=== PATIENT | female | born 1960 | race Caucasian/White ===

== ENCOUNTER 2023-07-28 14:11 | Inpatient (IN) ==
[2023-07-28 16:06] LABS: Basophils # (Auto) 0.01 K/mcL (0.00-0.30); Basophils % (Auto) 0.1 % (0.0-2.0); Eosinophils # (Auto) 0 K/mcL (0.00-0.70); Eosinophils % (Auto) 0 % (0.0-7.0); Hematocrit 31.6 % (34.1-44.9); Hemoglobin 11.4 g/dL (11.2-15.7); Lymphocytes # (Auto) 1.12 K/mcL (1.50-4.80); Lymphocytes % (Auto) 5.9 % (15.5-49.0); Mean Cell Volume 89.5 fL (80.0-100.0); Mean Corpuscular HGB Conc 36.1 g/dL (31.0-36.0); Mean Platelet Volume 8.6 fL (8.8-12.5); Monocytes # (Auto) 1.19 K/mcL (0.10-0.90); Monocytes % (Auto) 6.2 % (1.0-12.0); Neutrophils % (Auto) 86.8 % (38.0-78.0); Platelet Count 288 K/mcL (140-440); RBC 3.53 M/mcL (3.59-5.38); WBC 19.1 K/mcL (4.5-11.0)
[2023-07-28 16:07] LABS: ALT/SGPT 34 U/L (<40); AST/SGOT 46 U/L (<32); Albumin 3.2 gm/dL (3.2-5.2); Alkaline Phosphatase 71 U/L (39-117); Bilirubin,Total 0.6 mg/dL (0.1-1.0); Blood Urea Nitrogen 34 mg/dL (8-23); Calcium 8.3 mg/dL (8.6-10.4); Carbon Dioxide 16 mmol/L (22-30); Chloride 83 mmol/L (96-108); Globulin 3.2 gm/dL (2.2-3.7); Glomerular Filtration Rate 30; Glucose 130 mg/dL (70-105)
[2023-07-28] MEDS: AZITHROMYCIN 250 MG TABLET PO ONE (16:45)
[2023-07-28] MEDS: cefTRIAXone 1 GM VIAL IV ONE (17:30)
[2023-07-28] MEDS: 0.9 % SODIUM CHLORIDE 1,000 ML IV ONE (17:52)
[2023-07-28 18:04] LABS: Thyroid Stimulating Hormone 1.3 uIU/mL (0.27-5.01); Uric Acid 5.6 mg/dL (2.5-8.0)
[2023-07-28] MEDS: MAGNESIUM SULFATE 1 GM/100 ML BAG IV SCH (18:25)
[2023-07-28] MEDS: ACETAMINOPHEN 325 MG TABLET PO ONE (18:56)
[2023-07-28] MEDS: MAGNESIUM SULFATE 2 GM/50 ML BAG IV SCH (19:24)
[2023-07-28] MEDS: MAGNESIUM SULFATE 4 GM/100 ML BAG IV SCH (19:25)
[2023-07-28] MEDS: KETOROLAC 15 MG/ML VIAL IV ONE (20:10)
[2023-07-28] MEDS ORDERED: ONDANSETRON 4 MG/2 ML VIAL IV PRN (20:23)
[2023-07-28] MEDS: 0.9 % SODIUM CHLORIDE 1,000 ML IV SCH (21:01)
[2023-07-28] MEDS: IPRATROPIUM/ALBUTEROL 3 ML AMPUL.NEB NEB SCH (21:26)
[2023-07-28 21:34] LABS: Blood Urea Nitrogen 36 mg/dL (8-23); Carbon Dioxide 15 mmol/L (22-30); Chloride 87 mmol/L (96-108); Glomerular Filtration Rate 28; Glucose 139 mg/dL (70-105)
[2023-07-28 22:02] LABS: Appearance,Urine TURBID (Clear); Bilirubin,Urine Negative (Negative); Color,Urine AMBER; Culture Indicated,Urine No; Glucose,Urine (UA) Negative (Negative); Ketones,Urine 5 mg/dL (Negative); Leukocyte Esterase,Urine Negative /uL (Negative); Mucus,Urine FEW /hpf; Nitrate,Urine Negative (Negative); Protein,Urine 100 mg/dL (Negative); Specific Gravity,Urine 1.017 (1.000-1.035); Urine Blood 0.03 mg/dL (Negative); Urine Granular Cast 30 /lph (0-0); Urine RBC 3 /hpf (0-3); Urine Squamous Epithelial Cell 1 /hpf (0-4); Urine WBC 4 /hpf (0-4); Urobilinogen,Urine Negative
[2023-07-28] MEDS: PHOSPHORUS 250 MG TABLET PO ONE (22:07)
[2023-07-28] MEDS: HEPARIN 5,000 UNIT/ML VIAL SQ SCH (22:08)
[2023-07-28] MEDS: POTASSIUM CHLORIDE 20 MEQ TABLET PO PRN (22:42)
[2023-07-28] MEDS: POTASSIUM CHLORIDE 40 MEQ in DEXTROSE 5% IN WATER 500 ML IV PRN (22:43)
[2023-07-29] MEDS: POTASSIUM CHLORIDE 20 MEQ/10 ML VIAL IV ONE (00:27)
[2023-07-29 06:00] LABS: Basophils # (Auto) 0.01 K/mcL (0.00-0.30); Basophils % (Auto) 0 % (0.0-2.0); Eosinophils # (Auto) 0 K/mcL (0.00-0.70); Eosinophils % (Auto) 0 % (0.0-7.0); Hematocrit 30.2 % (34.1-44.9); Lymphocytes # (Auto) 0.47 K/mcL (1.50-4.80); Mean Cell Volume 90.1 fL (80.0-100.0); Mean Corpuscular HGB Conc 36.4 g/dL (31.0-36.0); Mean Platelet Volume 8.7 fL (8.8-12.5); Monocytes % (Auto) 2.1 % (1.0-12.0); Neutrophils % (Auto) 95.6 % (38.0-78.0); Platelet Count 308 K/mcL (140-440); RBC 3.35 M/mcL (3.59-5.38); Red Cell Distribution Width 12.3 % (11.5-14.5); WBC 23.4 K/mcL (4.5-11.0)
[2023-07-29 06:34] LABS: ALT/SGPT 30 U/L (<40); AST/SGOT 35 U/L (<32); Albumin 2.9 gm/dL (3.2-5.2); Alkaline Phosphatase 72 U/L (39-117); Bilirubin,Direct < 0.2 mg/dL (0-0.3); Bilirubin,Total 0.2 mg/dL (0.1-1.0); Blood Urea Nitrogen 38 mg/dL (8-23); Calcium 8.3 mg/dL (8.6-10.4); Carbon Dioxide 17 mmol/L (22-30); Chloride 87 mmol/L (96-108); Globulin 2.9 gm/dL (2.2-3.7); Glomerular Filtration Rate 30; Glucose 148 mg/dL (70-105); Lactate Dehydrogenase 239 U/L (135-225); Triglycerides 78 mg/dL (<150); Uric Acid 5.7 mg/dL (2.5-8.0)
[2023-07-29 08:06] LABS: Band Neutrophils % 32 % (0-10); Lymphocytes % 2 % (15-49); Monocytes % (Manual) 4 % (1-12); Platelet Estimate NORMAL (Normal); RBC Morphology NORMAL (Normal); Segmented Neutrophils % 62 % (38-78)
[2023-07-29] MEDS: ATENOLOL 50 MG TABLET PO SCH (08:24)
[2023-07-29] MEDS: SODIUM CHLORIDE 3 % 50 ML IV ONE ×2 (08:24→12:53)
[2023-07-29] MEDS: predniSONE 20 MG TABLET PO SCH (08:25)
[2023-07-29] MEDS: SODIUM BICARBONATE 650 MG TABLET PO SCH (08:25)
[2023-07-29] MEDS: PHOSPHORUS 250 MG TABLET PO SCH (08:25)
[2023-07-29] MEDS: ACETAMINOPHEN 325 MG TABLET PO PRN (08:25)
[2023-07-29] MEDS: cefTRIAXone 1 GM VIAL IV SCH (08:26)
[2023-07-29] MEDS ORDERED: LORazepam 2 MG/ML VIAL IV PRN (10:34)
[2023-07-29] MEDS: guaiFENesin/CODEINE 10 ML UDC PO PRN (10:58)
[2023-07-29] MEDS: MULTIVIT,THER IRON,CA,FA & MIN 1 TABLET PO SCH (10:58)
[2023-07-29] MEDS: FOLIC ACID 1 MG TABLET PO SCH (10:58)
[2023-07-29] MEDS: NICOTINE 14 MG PATCH TOPICAL SCH (10:58)
[2023-07-29] MEDS: AZITHROMYCIN 500 MG in DEXTROSE 5% IN WATER 250 ML IV SCH (10:58)
[2023-07-29 12:09] LABS: Blood Urea Nitrogen 36 mg/dL (8-23); Calcium 8.4 mg/dL (8.6-10.4); Carbon Dioxide 15 mmol/L (22-30); Chloride 89 mmol/L (96-108); Glomerular Filtration Rate 34; Glucose 172 mg/dL (70-105)
[2023-07-29] MEDS: 0.9 % SODIUM CHLORIDE 10 ML SYRINGE IV SCH (14:11)
[2023-07-29] MEDS: THIAMINE 100 MG in 0.9 % SODIUM CHLORIDE 50 ML IV SCH (14:17)
[2023-07-29] MEDS: POTASSIUM CHLORIDE 20 MEQ TABLET PO PRN (14:17)
[2023-07-29] MEDS: chlordiazePOXIDE 25 MG CAPSULE PO PRN (14:29)
[2023-07-29 16:54] LABS: Blood Urea Nitrogen 35 mg/dL (8-23); Carbon Dioxide 16 mmol/L (22-30); Chloride 91 mmol/L (96-108); Glomerular Filtration Rate 40; Glucose 249 mg/dL (70-105)
[2023-07-29] MEDS ORDERED: DEXTROSE 50% 50 ML VIAL IV PRN (17:50)
[2023-07-29] MEDS ORDERED: DEXTROSE 31 GM ORAL.SUSP PO PRN (17:50)
[2023-07-29] MEDS: 0.9 % SODIUM CHLORIDE 500 ML IV ONE (17:59)
[2023-07-29] MEDS: IPRATROPIUM/ALBUTEROL 3 ML AMPUL.NEB NEB PRN (18:00)
[2023-07-29] MEDS: SODIUM BICARBONATE VIAL 150 MEQ in WATER FOR INJECTION,STERILE 850 ML IV SCH (18:38)
[2023-07-29] MEDS: POTASSIUM CHLORIDE 20 MEQ TABLET PO ONE (18:39)
[2023-07-29] MEDS: MELATONIN 3 MG TABLET PO SCH (20:06)
[2023-07-29] MEDS: diphenhydrAMINE 25 MG CAPSULE PO PRN (20:06)
[2023-07-29] MEDS: Olopatadine 0.1 % drops OU SCH (20:07)
[2023-07-29] MEDS: MONTELUKAST 10 MG TABLET PO SCH (20:13)
[2023-07-29] MEDS: INSULIN LISPRO 1 UNIT/0.01 ML UNIT SQ SCH (20:14)
[2023-07-29] MEDS: LORazepam 2 MG/ML VIAL IV PRN (23:00)
[2023-07-30 06:20] LABS: Hematocrit 30.9 % (34.1-44.9); Mean Corpuscular HGB Conc 35.6 g/dL (31.0-36.0); Mean Platelet Volume 9.6 fL (8.8-12.5); Platelet Count 382 K/mcL (140-440); RBC 3.36 M/mcL (3.59-5.38); Red Cell Distribution Width 12.9 % (11.5-14.5); WBC 28.5 K/mcL (4.5-11.0)
[2023-07-30 06:28] LABS: Band Neutrophils % 22 % (0-10); Eosinophils % (Manual) 1 % (0-7); Lymphocytes % 3 % (15-49); Monocytes % (Manual) 2 % (1-12); Platelet Estimate NORMAL (Normal); RBC Morphology NORMAL (Normal); Reactive Lymphocytes 1 % (0-2); Segmented Neutrophils % 71 % (38-78)
[2023-07-30 06:47] LABS: ALT/SGPT 30 U/L (<40); AST/SGOT 30 U/L (<32); Albumin 2.9 gm/dL (3.2-5.2); Albumin/Globulin Ratio 0.9 (1.0-2.3); Alkaline Phosphatase 84 U/L (39-117); Bilirubin,Direct < 0.2 mg/dL (0-0.3); Bilirubin,Total 0.2 mg/dL (0.1-1.0); Blood Urea Nitrogen 33 mg/dL (8-23); Calcium 8.9 mg/dL (8.6-10.4); Carbon Dioxide 20 mmol/L (22-30); Chloride 93 mmol/L (96-108); Globulin 3.3 gm/dL (2.2-3.7); Glomerular Filtration Rate 54; Glucose 118 mg/dL (70-105); Lactate Dehydrogenase 297 U/L (135-225); Phosphorous 3.3 mg/dL (2.5-4.5); Triglycerides 144 mg/dL (<150); Uric Acid 5.9 mg/dL (2.5-8.0)
[2023-07-30] MEDS: OMEPRAZOLE 20 MG CAPSULE PO SCH (06:52)
[2023-07-30] MEDS ORDERED: NON FORMULARY MEDICATION 1 DOSE MISCELL BOTH EYES PRN (08:09)
[2023-07-30] MEDS: SODIUM CHLORIDE 1 GM TABLET PO SCH (08:35)
[2023-07-30] MEDS ORDERED: PNEUMOCOCCAL 23-VAL P-SAC VAC 0.5 ML SYRINGE IM ONE (10:00)
[2023-07-30] MEDS ORDERED: IOPAMIDOL 100 ML BOTTLE IV ONE (10:24)
[2023-07-30] MEDS: POLYETHYLENE GLYCOL 400 OU PRN (10:44)
[2023-07-30] MEDS: PROPYLENE GLYCOL OU PRN (10:44)
[2023-07-30] MEDS ORDERED: chlordiazePOXIDE 25 MG CAPSULE PO PRN (12:00)
[2023-07-30] MEDS: PNEUMOCOCCAL 23-VAL P-SAC VAC 0.5 ML SYRINGE IM ONE (15:14)
[2023-07-31 06:03] LABS: Hematocrit 33.4 % (34.1-44.9); Hemoglobin 11.4 g/dL (11.2-15.7); Mean Cell Volume 93.6 fL (80.0-100.0); Mean Corpuscular HGB Conc 34.1 g/dL (31.0-36.0); Platelet Count 453 K/mcL (140-440); RBC 3.57 M/mcL (3.59-5.38); Red Cell Distribution Width 13.5 % (11.5-14.5); WBC 25.2 K/mcL (4.5-11.0)
[2023-07-31 06:40] LABS: ALT/SGPT 27 U/L (<40); AST/SGOT 20 U/L (<32); Albumin 2.8 gm/dL (3.2-5.2); Albumin/Globulin Ratio 0.9 (1.0-2.3); Alkaline Phosphatase 77 U/L (39-117); Bilirubin,Direct < 0.2 mg/dL (0-0.3); Bilirubin,Total < 0.2 mg/dL (0.1-1.0); Blood Urea Nitrogen 29 mg/dL (8-23); Calcium 9.3 mg/dL (8.6-10.4); Carbon Dioxide 21 mmol/L (22-30); Chloride 94 mmol/L (96-108); Glomerular Filtration Rate 79; Glucose 120 mg/dL (70-105); Lactate Dehydrogenase 232 U/L (135-225); Phosphorous 3.7 mg/dL (2.5-4.5); Triglycerides 158 mg/dL (<150); Uric Acid 5.2 mg/dL (2.5-8.0)
[2023-07-31 06:44] LABS: Band Neutrophils % 5 % (0-10); Lymphocytes % 3 % (15-49); Monocytes % (Manual) 4 % (1-12); Reactive Lymphocytes 1 % (0-2); Segmented Neutrophils % 87 % (38-78)
[2023-07-31 06:52] LABS: Platelet Estimate INCREASED (Normal); RBC Morphology NORMAL (Normal)
[2023-07-31] MEDS: FUROSEMIDE 40 MG/4 ML VIAL IV ONE (08:59)
[2023-07-31] MEDS: ALBUMIN HUMAN 12.5 GM/50 ML VIAL IV ONE (08:59)
[2023-07-31] MEDS: NEOMYCIN AU SCH (14:30)
[2023-07-31] MEDS: POLYMYXIN AU SCH (14:30)
[2023-07-31] MEDS: [UNRECOGNIZED DRUG - OTHER] AU SCH (14:30)
[2023-08-01 06:01] LABS: Basophils # (Auto) 0.01 K/mcL (0.00-0.30); Basophils % (Auto) 0.1 % (0.0-2.0); Eosinophils # (Auto) 0.03 K/mcL (0.00-0.70); Eosinophils % (Auto) 0.2 % (0.0-7.0); Hematocrit 30.1 % (34.1-44.9); Hemoglobin 10.8 g/dL (11.2-15.7); Lymphocytes # (Auto) 2.36 K/mcL (1.50-4.80); Lymphocytes % (Auto) 14.4 % (15.5-49.0); Mean Cell Volume 94.1 fL (80.0-100.0); Mean Corpuscular HGB Conc 35.9 g/dL (31.0-36.0); Mean Platelet Volume 8.3 fL (8.8-12.5); Monocytes # (Auto) 0.65 K/mcL (0.10-0.90); Neutrophils % (Auto) 80.6 % (38.0-78.0); Platelet Count 491 K/mcL (140-440); Red Cell Distribution Width 13.4 % (11.5-14.5); WBC 16.4 K/mcL (4.5-11.0)
[2023-08-01 06:21] LABS: ALT/SGPT 24 U/L (<40); AST/SGOT 24 U/L (<32); Albumin 2.6 gm/dL (3.2-5.2); Alkaline Phosphatase 78 U/L (39-117); Bilirubin,Direct < 0.2 mg/dL (0-0.3); Bilirubin,Total 0.3 mg/dL (0.1-1.0); Blood Urea Nitrogen 31 mg/dL (8-23); Calcium 9.1 mg/dL (8.6-10.4); Carbon Dioxide 24 mmol/L (22-30); Chloride 98 mmol/L (96-108); Globulin 2.7 gm/dL (2.2-3.7); Glomerular Filtration Rate 79; Glucose 112 mg/dL (70-105); Lactate Dehydrogenase 305 U/L (135-225); Phosphorous 4.1 mg/dL (2.5-4.5); Triglycerides 146 mg/dL (<150)
[2023-08-01] MEDS: THIAMINE 100 MG TABLET PO SCH (08:02)
[2023-08-02] MEDS: hydrALAZINE 20 MG/ML VIAL IV PRN (00:54)
[2023-08-02 06:33] LABS: Basophils # (Auto) 0.01 K/mcL (0.00-0.30); Basophils % (Auto) 0.1 % (0.0-2.0); Eosinophils # (Auto) 0.12 K/mcL (0.00-0.70); Hematocrit 30.8 % (34.1-44.9); Hemoglobin 10.5 g/dL (11.2-15.7); Lymphocytes # (Auto) 2.52 K/mcL (1.50-4.80); Lymphocytes % (Auto) 20.8 % (15.5-49.0); Mean Cell Volume 94.8 fL (80.0-100.0); Mean Corpuscular HGB Conc 34.1 g/dL (31.0-36.0); Mean Platelet Volume 8.7 fL (8.8-12.5); Monocytes # (Auto) 0.64 K/mcL (0.10-0.90); Monocytes % (Auto) 5.3 % (1.0-12.0); Platelet Count 590 K/mcL (140-440); RBC 3.25 M/mcL (3.59-5.38); Red Cell Distribution Width 13.4 % (11.5-14.5); WBC 12.1 K/mcL (4.5-11.0)
[2023-08-02 07:25] LABS: ALT/SGPT 25 U/L (<40); AST/SGOT 25 U/L (<32); Albumin 2.8 gm/dL (3.2-5.2); Albumin/Globulin Ratio 1.2 (1.0-2.3); Alkaline Phosphatase 72 U/L (39-117); Bilirubin,Direct < 0.2 mg/dL (0-0.3); Bilirubin,Total 0.3 mg/dL (0.1-1.0); Blood Urea Nitrogen 27 mg/dL (8-23); Calcium 8.9 mg/dL (8.6-10.4); Carbon Dioxide 24 mmol/L (22-30); Chloride 101 mmol/L (96-108); Globulin 2.4 gm/dL (2.2-3.7); Glomerular Filtration Rate 97; Glucose 90 mg/dL (70-105); Lactate Dehydrogenase 186 U/L (135-225); Phosphorous 3.1 mg/dL (2.5-4.5); Triglycerides 175 mg/dL (<150); Uric Acid 3.6 mg/dL (2.5-8.0)
[2023-08-02] MEDS: MAGNESIUM SULFATE 2 GM/50 ML BAG IV PRN (07:48)
[2023-08-02] MEDS: AZITHROMYCIN 250 MG TABLET PO SCH (08:28)
[2023-08-02] MEDS: aMILoride 5 MG TABLET PO SCH (11:17)
[2023-08-02] MEDS ORDERED: FLUTICASONE PROPIONATE SPRAY.NAS NS PRN (12:12)
[2023-08-02] MEDS: MAGNESIUM SULFATE 4 GM/100 ML BAG IV ONE (12:52)
[2023-08-02] MEDS: MAGNESIUM OXIDE 400 MG TABLET PO SCH (14:27)
[2023-08-03 06:23] LABS: ALT/SGPT 28 U/L (<40); AST/SGOT 33 U/L (<32); Albumin 2.7 gm/dL (3.2-5.2); Albumin/Globulin Ratio 1.1 (1.0-2.3); Alkaline Phosphatase 72 U/L (39-117); Bilirubin,Total 0.2 mg/dL (0.1-1.0); Blood Urea Nitrogen 23 mg/dL (8-23); Calcium 8.9 mg/dL (8.6-10.4); Carbon Dioxide 24 mmol/L (22-30); Chloride 96 mmol/L (96-108); Globulin 2.5 gm/dL (2.2-3.7); Glomerular Filtration Rate 97; Glucose 94 mg/dL (70-105)
[2023-08-03 06:41] LABS: Basophils # (Auto) 0.01 K/mcL (0.00-0.30); Basophils % (Auto) 0.1 % (0.0-2.0); Eosinophils # (Auto) 0.13 K/mcL (0.00-0.70); Eosinophils % (Auto) 1.3 % (0.0-7.0); Hematocrit 30.8 % (34.1-44.9); Hemoglobin 10.4 g/dL (11.2-15.7); Lymphocytes # (Auto) 2.62 K/mcL (1.50-4.80); Lymphocytes % (Auto) 25.3 % (15.5-49.0); Mean Cell Volume 96.6 fL (80.0-100.0); Mean Corpuscular HGB Conc 33.8 g/dL (31.0-36.0); Mean Platelet Volume 9.1 fL (8.8-12.5); Monocytes # (Auto) 0.61 K/mcL (0.10-0.90); Monocytes % (Auto) 5.9 % (1.0-12.0); Neutrophils % (Auto) 66.1 % (38.0-78.0); Platelet Count 585 K/mcL (140-440); RBC 3.19 M/mcL (3.59-5.38); Red Cell Distribution Width 13.3 % (11.5-14.5); WBC 10.3 K/mcL (4.5-11.0)
[2023-08-03] MEDS: CETIRIZINE 10 MG TABLET PO SCH (08:06)
[2023-08-03] MEDS: VITAMIN D3 25 MCG TABLET PO SCH (08:07)
== END 2023-08-03 11:09 | disposition home or self-care (01) | DRG 871 ==
LOC: ED 14:11 → ICU 20:20
PROVIDERS: ADMIT Internal Medicine; ATTEND Internal Medicine

== ENCOUNTER 2023-08-14 16:56 | Inpatient (IN) ==
[2023-08-14] MEDS ORDERED: IOPAMIDOL 100 ML BOTTLE IV ONE ×2 (16:57)
[2023-08-14] MEDS: LACTATED RINGERS 1,000 ML IV ONE ×2 (17:25→19:19)
[2023-08-14] MEDS: ONDANSETRON 4 MG/2 ML VIAL IV ONE ×2 (17:28→21:07)
[2023-08-14 18:22] LABS: ALT/SGPT 18 U/L (<40); AST/SGOT 23 U/L (<32); Albumin 3.8 gm/dL (3.2-5.2); Alkaline Phosphatase 92 U/L (39-117); Bilirubin,Total 0.4 mg/dL (0.1-1.0); Blood Urea Nitrogen 18 mg/dL (8-23); Calcium 8.3 mg/dL (8.6-10.4); Carbon Dioxide 18 mmol/L (22-30); Chloride 92 mmol/L (96-108); Globulin 3.7 gm/dL (2.2-3.7); Glomerular Filtration Rate 92; Glucose 116 mg/dL (70-105)
[2023-08-14 18:23] LABS: Basophils # (Auto) 0.02 K/mcL (0.00-0.30); Basophils % (Auto) 0.3 % (0.0-2.0); Eosinophils % (Auto) 1.3 % (0.0-7.0); Hematocrit 32.6 % (34.1-44.9); Hemoglobin 11.2 g/dL (11.2-15.7); Lymphocytes # (Auto) 2.35 K/mcL (1.50-4.80); Lymphocytes % (Auto) 30.1 % (15.5-49.0); Mean Cell Volume 93.4 fL (80.0-100.0); Mean Corpuscular HGB Conc 34.4 g/dL (31.0-36.0); Mean Platelet Volume 8.8 fL (8.8-12.5); Monocytes # (Auto) 0.72 K/mcL (0.10-0.90); Monocytes % (Auto) 9.2 % (1.0-12.0); Platelet Count 422 K/mcL (140-440); RBC 3.49 M/mcL (3.59-5.38); Red Cell Distribution Width 12.6 % (11.5-14.5); WBC 7.8 K/mcL (4.5-11.0)
[2023-08-14] MEDS: MAGNESIUM SULFATE 2 GM/50 ML BAG IV ONE ×3 (18:52→23:40)
[2023-08-14] MEDS ORDERED: PROCHLORPERAZINE 10 MG/2 ML VIAL IV PRN (23:11)
[2023-08-14] MEDS ORDERED: ONDANSETRON 4 MG/2 ML VIAL IV PRN (23:11)
[2023-08-14] MEDS: LACTATED RINGERS 1,000 ML IV SCH (23:34)
[2023-08-14] MEDS: 0.9 % SODIUM CHLORIDE 10 ML SYRINGE IV SCH (23:38)
[2023-08-15 07:18] LABS: ALT/SGPT 17 U/L (<40); AST/SGOT 18 U/L (<32); Albumin 3.1 gm/dL (3.2-5.2); Albumin/Globulin Ratio 1.1 (1.0-2.3); Alkaline Phosphatase 76 U/L (39-117); Bilirubin,Direct < 0.2 mg/dL (0-0.3); Bilirubin,Total 0.4 mg/dL (0.1-1.0); Blood Urea Nitrogen 11 mg/dL (8-23); Carbon Dioxide 23 mmol/L (22-30); Chloride 95 mmol/L (96-108); Globulin 2.7 gm/dL (2.2-3.7); Glomerular Filtration Rate 103; Glucose 106 mg/dL (70-105); Lactate Dehydrogenase 149 U/L (135-225); Phosphorous 2.3 mg/dL (2.5-4.5); Triglycerides 94 mg/dL (<150); Uric Acid 2.2 mg/dL (2.5-8.0)
[2023-08-15] MEDS: ENOXAPARIN 40 MG/0.4 ML SYRINGE SQ SCH (08:14)
[2023-08-15] MEDS ORDERED: FLUTICASONE PROPIONATE SPRAY.NAS NS PRN (09:00)
[2023-08-15] MEDS ORDERED: CARBOXYMETHYLCELLULOSE SODIUM 1 EACH DROPER.GEL OP PRN (10:20)
[2023-08-15] MEDS: CETIRIZINE 10 MG TABLET PO SCH (11:18)
[2023-08-15] MEDS: ATENOLOL 50 MG TABLET PO SCH (11:18)
[2023-08-15] MEDS: aMILoride 5 MG TABLET PO SCH (11:18)
[2023-08-15] MEDS: THIAMINE 100 MG TABLET PO SCH (11:18)
[2023-08-15] MEDS: MAGNESIUM OXIDE 400 MG TABLET PO SCH ×3 (12:33→20:30)
[2023-08-15] MEDS ORDERED: IPRATROPIUM/ALBUTEROL 3 ML AMPUL.NEB NEB PRN (16:01)
[2023-08-15] MEDS: NICOTINE 14 MG PATCH TOPICAL SCH (16:53)
[2023-08-15] MEDS: MONTELUKAST 10 MG TABLET PO SCH (20:29)
[2023-08-16 06:43] LABS: ALT/SGPT 13 U/L (<40); AST/SGOT 16 U/L (<32); Albumin 3.1 gm/dL (3.2-5.2); Albumin/Globulin Ratio 1.2 (1.0-2.3); Alkaline Phosphatase 78 U/L (39-117); Bilirubin,Direct < 0.2 mg/dL (0-0.3); Bilirubin,Total 0.3 mg/dL (0.1-1.0); Blood Urea Nitrogen 7 mg/dL (8-23); Calcium 8.2 mg/dL (8.6-10.4); Carbon Dioxide 26 mmol/L (22-30); Chloride 98 mmol/L (96-108); Globulin 2.5 gm/dL (2.2-3.7); Glomerular Filtration Rate 103; Glucose 99 mg/dL (70-105); Lactate Dehydrogenase 161 U/L (135-225); Phosphorous 1.9 mg/dL (2.5-4.5); Triglycerides 115 mg/dL (<150); Uric Acid 1.7 mg/dL (2.5-8.0)
[2023-08-16] MEDS: VITAMIN D3 25 MCG TABLET PO SCH (08:49)
[2023-08-16] MEDS: FOLIC ACID 1 MG TABLET PO SCH (08:49)
[2023-08-16] MEDS: OMEPRAZOLE 20 MG CAPSULE PO SCH (08:50)
[2023-08-16] MEDS ORDERED: NICOTINE 14 MG PATCH TOPICAL SCH (10:00)
[2023-08-16] MEDS: MAGNESIUM OXIDE 400 MG TABLET PO SCH (10:42)
[2023-08-16] MEDS: MAGNESIUM SULFATE 2 GM/50 ML BAG IV SCH (12:23)
[2023-08-17 06:28] LABS: ALT/SGPT 13 U/L (<40); AST/SGOT 16 U/L (<32); Albumin 3.3 gm/dL (3.2-5.2); Albumin/Globulin Ratio 1.2 (1.0-2.3); Alkaline Phosphatase 89 U/L (39-117); Bilirubin,Direct < 0.2 mg/dL (0-0.3); Bilirubin,Total 0.3 mg/dL (0.1-1.0); Blood Urea Nitrogen 6 mg/dL (8-23); Calcium 8.8 mg/dL (8.6-10.4); Carbon Dioxide 25 mmol/L (22-30); Chloride 94 mmol/L (96-108); Globulin 2.7 gm/dL (2.2-3.7); Glomerular Filtration Rate 103; Glucose 93 mg/dL (70-105); Lactate Dehydrogenase 150 U/L (135-225); Phosphorous 2.1 mg/dL (2.5-4.5); Triglycerides 116 mg/dL (<150); Uric Acid 1.7 mg/dL (2.5-8.0)
[2023-08-17 07:08] LABS: Albumin 3.1 gm/dL (3.2-5.2); Phosphorous 2.1 mg/dL (2.5-4.5)
[2023-08-17] MEDS ORDERED: IOPAMIDOL 100 ML BOTTLE IV ONE (08:50)
[2023-08-17] MEDS: ACETAMINOPHEN 325 MG TABLET PO PRN (09:28)
[2023-08-17] MEDS ORDERED: GADOBENATE DIMEGLUMINE 15 ML/VIAL IV ONE (12:21)
[2023-08-17] MEDS ORDERED: AMPICILLIN SODIUM/SULBACTAM NA 3 GM in 0.9 % SODIUM CHLORIDE 100 ML IV SCH (13:15)
== END 2023-08-17 14:25 | disposition home or self-care (01) | DRG 641 ==
LOC: ED 16:56 → MEDSUR 22:54
PROVIDERS: ADMIT Internal Medicine; ATTEND Internal Medicine

== ENCOUNTER 2024-11-06 10:21 | Inpatient (IN) ==
[2024-11-06] MEDS ORDERED: IOPAMIDOL 100 ML BOTTLE IV ONE ×2 (10:22→15:22)
[2024-11-06] MEDS: ONDANSETRON 4 MG/2 ML VIAL IV PRN (10:55)
[2024-11-06] MEDS: KETOROLAC 30 MG/ML VIAL IV ONE (10:55)
[2024-11-06 11:24] LABS: Basophils # (Auto) 0.02 K/mcL (0.00-0.30); Basophils % (Auto) 0.1 % (0.0-2.0); Eosinophils # (Auto) 0.03 K/mcL (0.00-0.70); Eosinophils % (Auto) 0.2 % (0.0-7.0); Hematocrit 31.6 % (34.1-44.9); Hemoglobin 11.1 g/dL (11.2-15.7); Lymphocytes % (Auto) 12.2 % (15.5-49.0); Mean Cell Volume 88.5 fL (80.0-100.0); Mean Corpuscular HGB Conc 35.1 g/dL (31.0-36.0); Mean Platelet Volume 8.6 fL (8.8-12.5); Monocytes # (Auto) 1.18 K/mcL (0.10-0.90); Monocytes % (Auto) 8.5 % (1.0-12.0); Neutrophils % (Auto) 78.8 % (38.0-78.0); Platelet Count 329 K/mcL (140-440); RBC 3.57 M/mcL (3.59-5.38); Red Cell Distribution Width 11.8 % (11.5-14.5)
[2024-11-06 11:43] LABS: ALT/SGPT 13 U/L (<40); AST/SGOT 13 U/L (<32); Albumin 3.6 gm/dL (3.2-5.2); Albumin/Globulin Ratio 1.3 (1.0-2.3); Alkaline Phosphatase 86 U/L (39-117); Bilirubin,Total 0.5 mg/dL (0.1-1.0); Blood Urea Nitrogen 12 mg/dL (8-23); Calcium 8.9 mg/dL (8.6-10.4); Carbon Dioxide 22 mmol/L (22-30); Chloride 86 mmol/L (96-108); Globulin 2.8 gm/dL (2.2-3.7); Glomerular Filtration Rate 102; Glucose 112 mg/dL (70-105); Potassium 3.7 mmol/L (3.3-5.1); Sodium 121 mmol/L (133-145)
[2024-11-06] MEDS: morphine 4 MG/ML VIAL IV ONE ×2 (12:45→17:50)
[2024-11-06] MEDS: PIPERACILLIN SODIUM/TAZOBACTAM 3.375 GM in DEXTROSE 5% IN WATER 50 ML IV ONE (13:13)
[2024-11-06] MEDS: MAGNESIUM SULFATE 2 GM/50 ML BAG IV ONE (13:40)
[2024-11-06 14:05] LABS: Phosphorous 2.2 mg/dL (2.5-4.5)
[2024-11-06] MEDS: 0.9 % SODIUM CHLORIDE 1,000 ML IV SCH (15:00)
[2024-11-06] MEDS: MAGNESIUM SULFATE 1 GM/100 ML BAG IV ONE (17:34)
[2024-11-06] MEDS: NICOTINE 14 MG PATCH TOPICAL SCH (17:34)
[2024-11-06] MEDS: PANTOPRAZOLE 40 MG VIAL IV SCH (17:36)
[2024-11-06] MEDS: HYDROmorphone 0.5 MG/0.5 ML SYRINGE IV PRN (17:36)
[2024-11-06] MEDS: CIPROFLOXACIN 400 MG/200 ML BAG IV SCH ×2 (18:09→18:32)
[2024-11-06] MEDS: metroNIDAZOLE 500 MG/100 ML BAG IV SCH ×2 (18:34→21:00)
[2024-11-06 19:32] LABS: Sodium, Urine Random < 20 mmol/L
[2024-11-06 19:47] LABS: Osmolality,Urine 469 mOSM/kg (80-1000)
[2024-11-06] MEDS ORDERED: TRIAMCINOLONE CREAM 0.1% 15G 1 DOSE TUBE TOPICAL PRN (21:00)
[2024-11-06] MEDS: ATENOLOL 50 MG TABLET PO SCH (21:45)
[2024-11-06] MEDS: MONTELUKAST 10 MG TABLET PO SCH (21:45)
[2024-11-06] MEDS: DEXTROSE 5%-NS W/20MEQ KCL 1,000 ML IV SCH (23:37)
[2024-11-07 06:07] LABS: Basophils # (Auto) 0.02 K/mcL (0.00-0.30); Basophils % (Auto) 0.2 % (0.0-2.0); Eosinophils # (Auto) 0.15 K/mcL (0.00-0.70); Eosinophils % (Auto) 1.4 % (0.0-7.0); Hematocrit 34.3 % (34.1-44.9); Lymphocytes # (Auto) 1.15 K/mcL (1.50-4.80); Lymphocytes % (Auto) 10.6 % (15.5-49.0); Mean Cell Volume 89.3 fL (80.0-100.0); Mean Platelet Volume 7.9 fL (8.8-12.5); Monocytes # (Auto) 0.79 K/mcL (0.10-0.90); Monocytes % (Auto) 7.3 % (1.0-12.0); Neutrophils % (Auto) 80.3 % (38.0-78.0); Platelet Count 374 K/mcL (140-440); RBC 3.84 M/mcL (3.59-5.38); WBC 10.9 K/mcL (4.5-11.0)
[2024-11-07 06:37] LABS: Blood Urea Nitrogen 8 mg/dL (8-23); Carbon Dioxide 21 mmol/L (22-30); Chloride 92 mmol/L (96-108); Glomerular Filtration Rate 92; Glucose 107 mg/dL (70-105); Potassium 3.8 mmol/L (3.3-5.1); Sodium 126 mmol/L (133-145)
[2024-11-07 08:32] LABS: Phosphorous 3.7 mg/dL (2.5-4.5)
[2024-11-07] MEDS ORDERED: [UNRECOGNIZED DRUG - OTHER] PO SCH (09:00)
[2024-11-07] MEDS ORDERED: ESOMEPRAZOLE MAGNESIUM 20 MG PO SCH (09:00)
[2024-11-07] MEDS ORDERED: NICOTINE 14 MG PATCH TOPICAL SCH (16:00)
[2024-11-07] MEDS: ONDANSETRON 4 MG/2 ML VIAL IV PRN (16:15)
[2024-11-08 06:14] LABS: Basophils # (Auto) 0.05 K/mcL (0.00-0.30); Basophils % (Auto) 0.3 % (0.0-2.0); Eosinophils # (Auto) 0.06 K/mcL (0.00-0.70); Eosinophils % (Auto) 0.4 % (0.0-7.0); Hematocrit 31.1 % (34.1-44.9); Hemoglobin 10.7 g/dL (11.2-15.7); Lymphocytes # (Auto) 1.15 K/mcL (1.50-4.80); Lymphocytes % (Auto) 7.9 % (15.5-49.0); Mean Cell Volume 90.4 fL (80.0-100.0); Mean Corpuscular HGB Conc 34.4 g/dL (31.0-36.0); Monocytes # (Auto) 1.06 K/mcL (0.10-0.90); Monocytes % (Auto) 7.2 % (1.0-12.0); Neutrophils % (Auto) 83.8 % (38.0-78.0); Platelet Count 390 K/mcL (140-440); RBC 3.44 M/mcL (3.59-5.38); Red Cell Distribution Width 12.3 % (11.5-14.5); WBC 14.6 K/mcL (4.5-11.0)
[2024-11-08 06:54] LABS: Blood Urea Nitrogen 10 mg/dL (8-23); Calcium 8.5 mg/dL (8.6-10.4); Carbon Dioxide 20 mmol/L (22-30); Chloride 95 mmol/L (96-108); Glomerular Filtration Rate 96; Glucose 84 mg/dL (70-105); Potassium 2.9 mmol/L (3.3-5.1); Sodium 133 mmol/L (133-145)
[2024-11-08] MEDS: POTASSIUM CHLORIDE 40 MEQ in DEXTROSE 5% IN WATER 500 ML IV PRN (08:46)
[2024-11-08] MEDS: PIPERACILLIN SODIUM/TAZOBACTAM 3.375 GM in DEXTROSE 5% IN WATER 50 ML IV ONE (10:34)
[2024-11-08] MEDS: DEXTROSE 5%-NS 1,000 ML IV SCH (10:34)
[2024-11-08] MEDS ORDERED: fentaNYL 100 MCG/2 ML VIAL ONE (11:47)
[2024-11-08] MEDS ORDERED: KETAMINE 50 MG/ML Syringe IV ONE ×2 (11:47→15:42)
[2024-11-08] MEDS ORDERED: MIDAZOLAM 2 MG/2 ML VIAL ONE (11:48)
[2024-11-08] MEDS ORDERED: PROPOFOL 200 MG/20 ML VIAL IV ONE (11:48)
[2024-11-08] MEDS ORDERED: FAMOTIDINE/PF 20 MG/2 ML VIAL IV ONE (11:49)
[2024-11-08] MEDS ORDERED: MAGNESIUM SULFATE 2 GM/50 ML BAG IV ONE ×2 (11:49→15:41)
[2024-11-08] MEDS ORDERED: LIDOCAINE 2% PF 5 ML VIAL ONE ×2 (11:49→15:42)
[2024-11-08] MEDS ORDERED: SUCCINYLCHOLINE 200 MG/10 ML VIAL IV ONE (11:49)
[2024-11-08] MEDS ORDERED: ONDANSETRON 4 MG/2 ML VIAL ONE (11:49)
[2024-11-08] MEDS ORDERED: ROCURONIUM 10 MG/ML ML IV ONE ×2 (11:49→13:53)
[2024-11-08] MEDS ORDERED: GLYCOPYRROLATE 0.2 MG/ML VIAL IV ONE (11:49)
[2024-11-08] MEDS ORDERED: DEXAMETHASONE 10 MG/ML VIAL ONE (11:49)
[2024-11-08] MEDS ORDERED: HYDROmorphone 0.5 MG/0.5 ML SYRINGE ONE ×2 (13:37→15:39)
[2024-11-08] MEDS ORDERED: PHENYLephrine 1 MG/10 ML SYRINGE (ANEST) ONE ×2 (13:48→15:53)
[2024-11-08] MEDS ORDERED: SUGAMMADEX SODIUM 200 MG/2 ML VIAL IV ONE (14:13)
[2024-11-08] MEDS ORDERED: DEXMEDETOMIDINE HCL 200 MCG/2 ML VIAL ONE (15:42)
[2024-11-08] MEDS ORDERED: 0.9 % SODIUM CHLORIDE 100 ML IV ONE (15:44)
[2024-11-08] MEDS ORDERED: FLUMAZENIL 0.1 MG/ML ML IV PRN (16:28)
[2024-11-08] MEDS ORDERED: fentaNYL 100 MCG/2 ML VIAL IV PRN (16:28)
[2024-11-08] MEDS ORDERED: LACTATED RINGERS 250 ML IV PRN (16:28)
[2024-11-08] MEDS ORDERED: IPRATROPIUM/ALBUTEROL 3 ML AMPUL.NEB NEB PRN (16:28)
[2024-11-08] MEDS ORDERED: BENZOCAINE/MENTHOL 1 LOZENGE PO PRN (16:28)
[2024-11-08] MEDS ORDERED: KETOROLAC 15 MG/ML VIAL IV PRN (16:28)
[2024-11-08] MEDS ORDERED: ONDANSETRON 4 MG/2 ML VIAL IV PRN (16:28)
[2024-11-08] MEDS ORDERED: NALOXONE HCL 0.4 MG/ML VIAL IV PRN (16:28)
[2024-11-08] MEDS ORDERED: METHOCARBAMOL 1,000 MG/10 ML VIAL IV PRN (16:28)
[2024-11-08] MEDS ORDERED: METOCLOPRAMIDE 10 MG/2 ML VIAL ONE (16:38)
[2024-11-08] MEDS: BACITRACIN TOPICAL OINT 15 GM TUBE TOPICAL ONE (17:00)
[2024-11-08] MEDS: ACETAMINOPHEN 1,000 MG/100 ML BAG IV ONE (17:18)
[2024-11-08] MEDS: HYDROmorphone 0.5 MG/0.5 ML SYRINGE IV PRN (17:55)
[2024-11-08] MEDS: LACTATED RINGERS 1,000 ML IV SCH (18:20)
[2024-11-08] MEDS: PIPERACILLIN SODIUM/TAZOBACTAM 3.375 GM in DEXTROSE 5% IN WATER 100 ML IV SCH (18:21)
[2024-11-09 06:39] LABS: Basophils # (Auto) 0.02 K/mcL (0.00-0.30); Basophils % (Auto) 0.1 % (0.0-2.0); Eosinophils # (Auto) 0 K/mcL (0.00-0.70); Eosinophils % (Auto) 0 % (0.0-7.0); Hematocrit 28.6 % (34.1-44.9); Lymphocytes # (Auto) 1.82 K/mcL (1.50-4.80); Lymphocytes % (Auto) 12.5 % (15.5-49.0); Mean Cell Volume 88.8 fL (80.0-100.0); Monocytes # (Auto) 0.72 K/mcL (0.10-0.90); Monocytes % (Auto) 4.9 % (1.0-12.0); Platelet Count 410 K/mcL (140-440); RBC 3.22 M/mcL (3.59-5.38); Red Cell Distribution Width 12.4 % (11.5-14.5); WBC 14.6 K/mcL (4.5-11.0)
[2024-11-09 07:03] LABS: ALT/SGPT 17 U/L (<40); AST/SGOT 13 U/L (<32); Albumin 2.4 gm/dL (3.2-5.2); Albumin/Globulin Ratio 1.1 (1.0-2.3); Alkaline Phosphatase 101 U/L (39-117); Bilirubin,Direct < 0.2 mg/dL (0-0.3); Bilirubin,Total 0.2 mg/dL (0.1-1.0); Blood Urea Nitrogen 8 mg/dL (8-23); Calcium 7.8 mg/dL (8.6-10.4); Carbon Dioxide 24 mmol/L (22-30); Chloride 97 mmol/L (96-108); Globulin 2.1 gm/dL (2.2-3.7); Glomerular Filtration Rate 96; Glucose 177 mg/dL (70-105); Lactate Dehydrogenase 171 U/L (135-225); Phosphorous 3.6 mg/dL (2.5-4.5); Potassium 3.4 mmol/L (3.3-5.1); Sodium 129 mmol/L (133-145); Triglycerides 38 mg/dL (<150); Uric Acid 2.9 mg/dL (2.5-8.0)
[2024-11-09] MEDS: SODIUM CHLORIDE 1 GM TABLET PO SCH (10:00)
[2024-11-09] MEDS: POTASSIUM CHLORIDE 20 MEQ TABLET PO SCH (17:31)
[2024-11-09] MEDS: HEPARIN 5,000 UNIT/ML VIAL SQ SCH (20:56)
[2024-11-09] MEDS: ACETAMINOPHEN 1,000 MG/100 ML BAG IV SCH (22:59)
[2024-11-09] MEDS: ACETAMINOPHEN 1,000 MG/100 ML BAG IV ONE (23:02)
[2024-11-10] MEDS: ACETAMINOPHEN 1,000 MG/100 ML BAG IV ONE (06:00)
[2024-11-10 07:35] LABS: ALT/SGPT 16 U/L (<40); AST/SGOT 13 U/L (<32); Albumin 2.6 gm/dL (3.2-5.2); Albumin/Globulin Ratio 1.1 (1.0-2.3); Alkaline Phosphatase 91 U/L (39-117); Bilirubin,Total 0.3 mg/dL (0.1-1.0); Blood Urea Nitrogen 9 mg/dL (8-23); Calcium 8.1 mg/dL (8.6-10.4); Carbon Dioxide 24 mmol/L (22-30); Chloride 94 mmol/L (96-108); Globulin 2.3 gm/dL (2.2-3.7); Glomerular Filtration Rate 92; Glucose 136 mg/dL (70-105); Phosphorous 2.7 mg/dL (2.5-4.5); Potassium 3.4 mmol/L (3.3-5.1); Sodium 129 mmol/L (133-145)
[2024-11-10 07:51] LABS: Basophils # (Auto) 0.03 K/mcL (0.00-0.30); Basophils % (Auto) 0.2 % (0.0-2.0); Eosinophils # (Auto) 0.27 K/mcL (0.00-0.70); Eosinophils % (Auto) 1.8 % (0.0-7.0); Hemoglobin 10.2 g/dL (11.2-15.7); Lymphocytes # (Auto) 1.65 K/mcL (1.50-4.80); Lymphocytes % (Auto) 11.2 % (15.5-49.0); Mean Cell Volume 91.2 fL (80.0-100.0); Monocytes # (Auto) 0.97 K/mcL (0.10-0.90); Monocytes % (Auto) 6.6 % (1.0-12.0); Neutrophils % (Auto) 79.3 % (38.0-78.0); Platelet Count 501 K/mcL (140-440); RBC 3.29 M/mcL (3.59-5.38); Red Cell Distribution Width 12.5 % (11.5-14.5); WBC 14.7 K/mcL (4.5-11.0)
[2024-11-10] MEDS: SODIUM CHLORIDE 1 GM TABLET PO SCH (08:59)
[2024-11-10] MEDS: MAGNESIUM OXIDE 400 MG TABLET PO SCH (08:59)
[2024-11-10] MEDS: NICOTINE 14 MG PATCH TOPICAL SCH (10:13)
[2024-11-11 06:45] LABS: Basophils # (Auto) 0.04 K/mcL (0.00-0.30); Basophils % (Auto) 0.3 % (0.0-2.0); Eosinophils # (Auto) 0.17 K/mcL (0.00-0.70); Eosinophils % (Auto) 1.1 % (0.0-7.0); Hematocrit 30.5 % (34.1-44.9); Hemoglobin 10.3 g/dL (11.2-15.7); Lymphocytes # (Auto) 1.79 K/mcL (1.50-4.80); Lymphocytes % (Auto) 11.8 % (15.5-49.0); Mean Cell Volume 91.6 fL (80.0-100.0); Mean Corpuscular HGB Conc 33.8 g/dL (31.0-36.0); Monocytes # (Auto) 0.69 K/mcL (0.10-0.90); Monocytes % (Auto) 4.6 % (1.0-12.0); Neutrophils % (Auto) 81.5 % (38.0-78.0); Platelet Count 498 K/mcL (140-440); RBC 3.33 M/mcL (3.59-5.38); Red Cell Distribution Width 12.7 % (11.5-14.5); WBC 15.1 K/mcL (4.5-11.0)
[2024-11-11 07:06] LABS: ALT/SGPT 13 U/L (<40); AST/SGOT 10 U/L (<32); Albumin 2.4 gm/dL (3.2-5.2); Alkaline Phosphatase 95 U/L (39-117); Bilirubin,Total 0.2 mg/dL (0.1-1.0); Blood Urea Nitrogen 9 mg/dL (8-23); Carbon Dioxide 24 mmol/L (22-30); Chloride 99 mmol/L (96-108); Globulin 2.3 gm/dL (2.2-3.7); Glomerular Filtration Rate 96; Glucose 123 mg/dL (70-105); Phosphorous 3.4 mg/dL (2.5-4.5); Potassium 3.4 mmol/L (3.3-5.1); Sodium 134 mmol/L (133-145)
[2024-11-11] MEDS: MAGNESIUM SULFATE 2 GM/50 ML BAG IV PRN (12:13)
[2024-11-11] MEDS: LACTOBACILLUS 1 CAPSULE PO SCH (12:13)
[2024-11-12 06:44] LABS: Phosphorous 2.8 mg/dL (2.5-4.5)
[2024-11-12 06:45] LABS: ALT/SGPT 11 U/L (<40); AST/SGOT 10 U/L (<32); Albumin 2.6 gm/dL (3.2-5.2); Alkaline Phosphatase 96 U/L (39-117); Bilirubin,Total 0.2 mg/dL (0.1-1.0); Blood Urea Nitrogen 8 mg/dL (8-23); Calcium 8.7 mg/dL (8.6-10.4); Carbon Dioxide 24 mmol/L (22-30); Chloride 98 mmol/L (96-108); Globulin 2.6 gm/dL (2.2-3.7); Glomerular Filtration Rate 96; Glucose 120 mg/dL (70-105); Sodium 132 mmol/L (133-145)
[2024-11-12 06:52] LABS: Basophils # (Auto) 0.04 K/mcL (0.00-0.30); Basophils % (Auto) 0.3 % (0.0-2.0); Eosinophils # (Auto) 0.17 K/mcL (0.00-0.70); Eosinophils % (Auto) 1.2 % (0.0-7.0); Hematocrit 30.1 % (34.1-44.9); Lymphocytes # (Auto) 1.85 K/mcL (1.50-4.80); Lymphocytes % (Auto) 12.5 % (15.5-49.0); Mean Cell Volume 92.3 fL (80.0-100.0); Mean Corpuscular HGB Conc 33.2 g/dL (31.0-36.0); Mean Platelet Volume 7.9 fL (8.8-12.5); Monocytes # (Auto) 0.67 K/mcL (0.10-0.90); Monocytes % (Auto) 4.5 % (1.0-12.0); Neutrophils % (Auto) 80.1 % (38.0-78.0); Platelet Count 603 K/mcL (140-440); RBC 3.26 M/mcL (3.59-5.38); Red Cell Distribution Width 12.9 % (11.5-14.5); WBC 14.8 K/mcL (4.5-11.0)
[2024-11-12] MEDS: POTASSIUM CHLORIDE 20 MEQ TABLET PO PRN (08:01)
[2024-11-12] MEDS ORDERED: VANCOMYCIN PER PHARMACY IV SCH (10:30)
[2024-11-12] MEDS: VANCOMYCIN 1,000 MG in 0.9 % SODIUM CHLORIDE 250 ML IV SCH (11:34)
[2024-11-12] MEDS: POTASSIUM CHLORIDE 20 MEQ TABLET PO SCH (17:49)
[2024-11-13 09:02] LABS: Basophils # (Auto) 0.04 K/mcL (0.00-0.30); Basophils % (Auto) 0.3 % (0.0-2.0); Eosinophils # (Auto) 0.13 K/mcL (0.00-0.70); Hematocrit 28.8 % (34.1-44.9); Hemoglobin 9.4 g/dL (11.2-15.7); Lymphocytes # (Auto) 1.73 K/mcL (1.50-4.80); Lymphocytes % (Auto) 12.9 % (15.5-49.0); Mean Cell Volume 94.7 fL (80.0-100.0); Mean Corpuscular HGB Conc 32.6 g/dL (31.0-36.0); Mean Platelet Volume 7.6 fL (8.8-12.5); Monocytes # (Auto) 0.56 K/mcL (0.10-0.90); Monocytes % (Auto) 4.2 % (1.0-12.0); Neutrophils % (Auto) 80.8 % (38.0-78.0); Platelet Count 563 K/mcL (140-440); RBC 3.04 M/mcL (3.59-5.38); WBC 13.4 K/mcL (4.5-11.0)
[2024-11-13 09:22] LABS: Phosphorous 3.2 mg/dL (2.5-4.5)
[2024-11-13 09:28] LABS: ALT/SGPT 25 U/L (<40); AST/SGOT 31 U/L (<32); Albumin 2.8 gm/dL (3.2-5.2); Albumin/Globulin Ratio 1.1 (1.0-2.3); Alkaline Phosphatase 256 U/L (39-117); Bilirubin,Total 0.2 mg/dL (0.1-1.0); Blood Urea Nitrogen 5 mg/dL (8-23); Calcium 8.5 mg/dL (8.6-10.4); Carbon Dioxide 22 mmol/L (22-30); Chloride 101 mmol/L (96-108); Globulin 2.5 gm/dL (2.2-3.7); Glomerular Filtration Rate 96; Glucose 96 mg/dL (70-105); Potassium 3.6 mmol/L (3.3-5.1); Sodium 133 mmol/L (133-145)
[2024-11-13] MEDS: aMILoride 5 MG TABLET PO SCH (15:29)
[2024-11-13] MEDS: SIMETHICONE 80 MG TAB.CHEW CHEWED PRN (15:30)
[2024-11-13] MEDS: MAGNESIUM SULFATE 2 GM/50 ML BAG IV ONE (16:25)
[2024-11-13] MEDS: POTASSIUM CHLORIDE 20 MEQ/15 ML ML PO SCH (17:28)
[2024-11-13] MEDS: oxyCODONE IR 5 MG TABLET PO PRN (20:12)
[2024-11-14 08:51] LABS: Basophils # (Auto) 0.03 K/mcL (0.00-0.30); Basophils % (Auto) 0.3 % (0.0-2.0); Eosinophils # (Auto) 0.16 K/mcL (0.00-0.70); Eosinophils % (Auto) 1.5 % (0.0-7.0); Hemoglobin 8.8 g/dL (11.2-15.7); Lymphocytes # (Auto) 1.48 K/mcL (1.50-4.80); Mean Cell Volume 93.8 fL (80.0-100.0); Mean Corpuscular HGB Conc 32.6 g/dL (31.0-36.0); Mean Platelet Volume 7.7 fL (8.8-12.5); Monocytes # (Auto) 0.44 K/mcL (0.10-0.90); Monocytes % (Auto) 4.2 % (1.0-12.0); Neutrophils % (Auto) 79.2 % (38.0-78.0); Platelet Count 564 K/mcL (140-440); RBC 2.88 M/mcL (3.59-5.38); Red Cell Distribution Width 13.1 % (11.5-14.5); WBC 10.6 K/mcL (4.5-11.0)
[2024-11-14 09:06] LABS: ALT/SGPT 23 U/L (<40); AST/SGOT 28 U/L (<32); Albumin 2.8 gm/dL (3.2-5.2); Albumin/Globulin Ratio 1.1 (1.0-2.3); Alkaline Phosphatase 207 U/L (39-117); Bilirubin,Total 0.2 mg/dL (0.1-1.0); Blood Urea Nitrogen 4 mg/dL (8-23); Calcium 8.4 mg/dL (8.6-10.4); Carbon Dioxide 20 mmol/L (22-30); Chloride 102 mmol/L (96-108); Globulin 2.6 gm/dL (2.2-3.7); Glomerular Filtration Rate 96; Glucose 110 mg/dL (70-105); Potassium 3.5 mmol/L (3.3-5.1); Sodium 133 mmol/L (133-145)
[2024-11-15 06:57] LABS: Basophils # (Auto) 0.03 K/mcL (0.00-0.30); Basophils % (Auto) 0.4 % (0.0-2.0); Eosinophils # (Auto) 0.16 K/mcL (0.00-0.70); Hemoglobin 8.8 g/dL (11.2-15.7); Lymphocytes # (Auto) 1.58 K/mcL (1.50-4.80); Lymphocytes % (Auto) 19.5 % (15.5-49.0); Mean Cell Volume 93.8 fL (80.0-100.0); Mean Corpuscular HGB Conc 32.6 g/dL (31.0-36.0); Mean Platelet Volume 7.8 fL (8.8-12.5); Monocytes # (Auto) 0.49 K/mcL (0.10-0.90); Neutrophils % (Auto) 71.1 % (38.0-78.0); Platelet Count 563 K/mcL (140-440); RBC 2.88 M/mcL (3.59-5.38); Red Cell Distribution Width 13.3 % (11.5-14.5); WBC 8.1 K/mcL (4.5-11.0)
[2024-11-15 07:08] LABS: Phosphorous 2.9 mg/dL (2.5-4.5)
[2024-11-15 07:32] LABS: ALT/SGPT 19 U/L (<40); AST/SGOT 19 U/L (<32); Albumin 2.7 gm/dL (3.2-5.2); Albumin/Globulin Ratio 1.2 (1.0-2.3); Alkaline Phosphatase 177 U/L (39-117); Bilirubin,Total 0.2 mg/dL (0.1-1.0); Blood Urea Nitrogen 3 mg/dL (8-23); Calcium 8.3 mg/dL (8.6-10.4); Carbon Dioxide 21 mmol/L (22-30); Chloride 102 mmol/L (96-108); Globulin 2.2 gm/dL (2.2-3.7); Glomerular Filtration Rate 102; Glucose 100 mg/dL (70-105); Potassium 3.8 mmol/L (3.3-5.1); Sodium 133 mmol/L (133-145)
[2024-11-15] MEDS: VANCOMYCIN 1,000 MG in 0.9 % SODIUM CHLORIDE 250 ML IV SCH (08:25)
[2024-11-15] MEDS: ACETAMINOPHEN 1,000 MG/100 ML BAG IV PRN (14:26)
[2024-11-16 07:11] LABS: ALT/SGPT 19 U/L (<40); AST/SGOT 25 U/L (<32); Albumin/Globulin Ratio 1.4 (1.0-2.3); Alkaline Phosphatase 185 U/L (39-117); Bilirubin,Direct 0.2 mg/dL (<0.3); Bilirubin,Total 0.2 mg/dL (0.1-1.0); Blood Urea Nitrogen 4 mg/dL (8-23); Calcium 8.4 mg/dL (8.6-10.4); Carbon Dioxide 23 mmol/L (22-30); Chloride 100 mmol/L (96-108); Globulin 2.2 gm/dL (2.2-3.7); Glomerular Filtration Rate 96; Glucose 113 mg/dL (70-105); Lactate Dehydrogenase 307 U/L (135-225); Phosphorous 3.2 mg/dL (2.5-4.5); Potassium 3.8 mmol/L (3.3-5.1); Sodium 133 mmol/L (133-145); Triglycerides 164 mg/dL (<150); Uric Acid 1.5 mg/dL (2.5-8.0)
[2024-11-16 15:35] VITALS: TEMP 98.3; O2SAT 93
== END 2024-11-16 16:20 | disposition home or self-care (01) | DRG 398 ==
LOC: MEDSUR 10:21 → ED 10:21 → MEDSUR 15:32
PROVIDERS: ADMIT Surgery Surgical Critical Care; ATTEND Surgery Surgical Critical Care